=== PATIENT | male | born 1945 | race Caucasian/White ===

== ENCOUNTER 2019-03-06 09:56 | Inpatient (IN) ==
[2019-03-06] MEDS ORDERED: NS 1,000 ML IV ONE (10:48)
[2019-03-06] MEDS ORDERED: NS 1,000 ML ONE (10:55)
[2019-03-06 11:08] LABS: BASO# 0.01 X1000 (0.0-0.2); BASO% 0.1 % (0.0-0.8); EOS# 0.06 X1000 (0.0-0.7); EOS% 0.5 % (0.0-10.0); HEMATOCRIT 35.1 % (42.0-52.0); HEMOGLOBIN 11.9 g/dL (14.0-18.0); IMM GRAN# 0.04 X1000 (0.0-0.04); IMM GRAN% 0.3 % (0.0-0.5); LYMPH# 0.46 X1000 (1.2-3.4); LYMPH% 3.7 % (20.5-51.1); MCH 29.5 PG (27-31); MCHC 33.9 g/dL (33-37); MCV 86.9 FL (81-99); MONO# 1.38 X1000 (0.11-0.59); MONO% 11.1 % (1.7-9.3); MPV 11.2 FL (7.4-10.4); NEUT# 10.51 X1000 (1.4-6.5); NEUT% 84.3 % (42.2-75.2); PLT 161 X1000 (130-400); RBC 4.04 XMIL (4.7-6.1); RDW 13.8 % (11.5-14.5); WBC 12.46 X1000 (4.8-10.8)
--- NOTE | 2019-03-06 11:28 | Diag Imaging Result Doc PS360 ---
FLAT/UPRIGHT ABD/1 VIEW CHEST - 03/06/2019 INDICATION: post op abdominal swelling TECHNIQUE: COMPARISON: Chest x-ray 10/02/2017 FINDINGS: There is severe pulmonary fibrosis in the lung bases. There are new infiltrates in the lung bases. Heart size and pulmonary vascularity is normal. There are some large gas distended small bowel loops abnormally distended. These measure up to 3.9 cm. There is fecal impaction of the colon diffusely. No free air. IMPRESSION: 1. Significant fecal impaction of the colon. 2. Abnormally distended small bowel loops consistent with partial obstruction or ileus. 3. Severe pulmonary fibrosis. 4. Superimposed infiltrate/pneumonia in the lung bases. Electronically signed by Rolly Morton 03/06/2019 11:26 AM
[2019-03-06 11:38] LABS: ALB/GLOB RATIO 0.9; ALBUMIN 3.4 g/dL (3.5-5.0); CALCIUM 9.1 mg/dL (8.8-10.2); POTASSIUM 4.8 mmol/L (3.5-5.1); TOTAL BILIRUBIN 0.53 mg/dL (0.20-1.00); TOTAL PROTEIN 7.1 g/dL (6.3-8.3)
--- NOTE | 2019-03-06 14:01 | HISTORY AND PHYSICAL ---
HISTORY: Mr. Vasquez Rubalcava is a 73-year-old white male patient of Dr. Jonel Braden. He has a history of gastric cancer and gastric resection. He recently has developed bilateral inguinal hernias. of last week, he underwent a robotic assisted laparoscopic repair of his bilateral inguinal hernias using mesh. His trocars were placed in the upper abdomen, but under direct vision of the camera. We felt we negotiated any scarring from his previous gastric surgery. We felt that the hernia repairs went well. Postoperatively, he had some problems voiding but was discharged home and was able to void when he got home. However, he has had lower abdominal pain. He feels more than expected for hernia repair the first 3 days postop. That pain has improved, but he has abdominal distention. He has not been able to eat or drink a lot of volume. He did vomit today, and his thought it was a coffee-ground vomitus. It did make him feel better to vomit. He did have a small bowel movement over the last 24 hours and passed some gas. He has taken all his pain medicine. I gave him 12 [place] 7.5. He was brought to the emergency department because of his failure to thrive postoperative bilateral inguinal hernia repair. PHYSICAL EXAMINATION: On exam, Mr. Rubalcava is awake and cooperative. He is sitting up. He has obvious abdominal distention. He is unshaven. He looks a little bit dehydrated and weak. He has no jaundice. No oral lesions. No cervical or supraclavicular lymphadenopathy. His heart has a regular rate. I think he is a little bit tachycardic. He is not hooked to the monitor. He has no shortness of breath. His lungs were clear to auscultation and percussion bilaterally. His abdomen is distended. His trocar sites are intact with Steri-Strips. His inguinal hernia area has no evidence of recurrent hernia or incarcerated hernia. There is minimal swelling and bruising. LABORATORY DATA AND X-RAYS: Pending. IMPRESSION: Postoperative abdominal distention and pain, which we feel was out of the ordinary status post robotic assisted laparoscopic bilateral inguinal hernia repair. It could be a postoperative ileus pr problems with urinary retention. We did place trocars close to abdominal scarring in the upper abdomen, and we need to rule out any unrecognized injury from trocar placement. PLAN: Certainly, I will notify Dr. Jonel Braden of his admission. We will send labs including CBC and Chem 12. We will get a flat and upright abdominal film. I do feel that he will require admission. cc: Zulema Walton MD
[2019-03-06] MEDS: AZULFIDINE PO SCH (23:48)
[2019-03-07 06:28] LABS: BASO# 0.01 X1000 (0.0-0.2); BASO% 0.1 % (0.0-0.8); EOS# 0.08 X1000 (0.0-0.7); EOS% 0.8 % (0.0-10.0); HEMATOCRIT 34.7 % (42.0-52.0); HEMOGLOBIN 11.7 g/dL (14.0-18.0); LYMPH# 0.42 X1000 (1.2-3.4); LYMPH% 4.3 % (20.5-51.1); MCH 29.8 PG (27-31); MCHC 33.7 g/dL (33-37); MCV 88.5 FL (81-99); MONO# 1.13 X1000 (0.11-0.59); MONO% 11.6 % (1.7-9.3); NEUT# 8.13 X1000 (1.4-6.5); NEUT% 83.2 % (42.2-75.2); PLT 187 X1000 (130-400); RBC 3.92 XMIL (4.7-6.1); RDW 13.9 % (11.5-14.5); WBC 9.77 X1000 (4.8-10.8)
[2019-03-07 07:25] LABS: CALCIUM 8.8 mg/dL (8.8-10.2); CREATININE 1.3 mg/dL (0.7-1.2); POTASSIUM 3.9 mmol/L (3.5-5.1)
[2019-03-07] MEDS ORDERED: SPIRIVA INH SCH (07:30)
--- NOTE | 2019-03-07 07:34 | PROGRESS NOTE ---
DATE: 03/07/2019 Mr. Vasquez Rubalcava is now postop day 6 from a robotic assisted laparoscopic bilateral inguinal hernia repair. His postoperative convalescence has been complicated by nausea, increasing abdominal distention, and dehydration with elevation of his BUN and creatinine. He presented to the emergency department yesterday after vomiting and it was felt to be coffee-grounds by his . On exam, he had abdominal distention but no evidence of peritonitis. Flat and upright abdominal films did not suggest free air. His white blood cell count was 12.5. He was admitted for rehydration. This morning, his abdomen remains distended. He did not sleep because he could not get comfortable. It is not tender. His heart rate is 84, blood pressure 119/50, O2 saturation 97%. His T-max was 99.5 degrees and he is not on antibiotics. His white blood cell count is now normal at 9.8, hematocrit steady at 35%. His electrolytes are pending. I expect his BUN and creatinine to be improved with hydration. He has had satisfactory urine output of 400-600 mL per shift. He is not taking much p.o. fluids. I am going to send him for a CT scan of his abdomen and pelvis this morning for further evaluation intra-abdominally. On exam of his abdomen, it is distended tightly. It does not seem to be tender. His trocar sites are intact and he has no evidence of recurrent inguinal hernia. He states that he did pass some flatus this morning. Further recommendations will be made after the CT scan. cc: Zulema Walton MD
[2019-03-07] MEDS: PATIENT'S OWN MED INH SCH ×3 (07:49→19:54)
[2019-03-07] MEDS: SODIUM CHLORIDE 0.9% INJ SCH (08:14)
[2019-03-07] MEDS: PROTONIX IV SCH (08:14)
[2019-03-07] MEDS: D5 1/2 NS + KCL 20 MEQ 1,000 ML IV SCH (08:14)
[2019-03-07] MEDS: AZULFIDINE PO SCH (11:36)
--- NOTE | 2019-03-07 12:15 | Diag Imaging Result Doc PS360 ---
EXAM: CT ABD/PELVIS W/PO AND IV CON 03/07/2019 HISTORY: Abd distension after bilateral inguinal hernia rep TECHNIQUE: This exam was performed using automated exposure control, adjustment of mA or kV according to patient size, and/or use of iterative reconstruction technique. COMMENT: There is COPD with extensive subpleural blebs. There is also honeycombing in both lower lobes as well as volume loss and consolidation particularly in the right lower lobe. Compared to the previous thoracic CT of 10/02/2017, the consolidation in the right lower lobe was not present previously. There is some traction bronchiectasis particularly in the left lower lobe which was also present previously. There is some ascites. There are some small gallstones layering dependently in the gallbladder which is distended. There are surgical clips adjacent to the pancreatic head. The common bile duct is somewhat distended measuring over 9 mm in diameter. This measured under 8 mm previously. There is dilatation of the distal pancreatic duct and multiple cystic appearing abnormalities are present in the area of the pancreatic head and anterior right pararenal space. This may be sequela of pancreatitis. No previous abdominal CT examinations are available for comparison. There is no evidence of stones or hydronephrosis in the kidneys. There are atherosclerotic calcifications in the aorta which is not distended. There are multiple fluid-filled small bowel loops. There is some stool in the ascending colon but the majority of the colon is not distended. This is particularly true of the descending colon. There is no evidence of appendicitis. Pelvis: The distal small bowel is not distended. There are bilateral seromas in the internal inguinal rings. There is a knuckle of small bowel protruding into the right inguinal ring and this is apparently the location of the stricture producing the obstruction. There is a Prakash catheter in the bladder. IMPRESSION: 1. Small bowel obstruction due to right inguinal hernia or associated adhesion. 2. Worsened biliary dilatation and multilocular cystic pancreatic abnormality as described above. 3. Atelectasis and/or pneumonia right lower lobe superimposed on pulmonary fibrosis and COPD. Electronically signed by Monster Melgoza 03/07/2019 12:12 PM
[2019-03-07] MEDS ORDERED: ROBINUL ONE ×2 (13:26→13:31)
[2019-03-07] MEDS ORDERED: XYLOCAINE-MPF 2% ONE (13:26)
[2019-03-07] MEDS ORDERED: FENTANYL ONE (13:26)
[2019-03-07] MEDS ORDERED: DIPRIVAN 1% ONE (13:26)
[2019-03-07] MEDS ORDERED: HURRICAINE SPRAY (DOSE) ONE (13:27)
[2019-03-07] MEDS ORDERED: NORCURON ONE (13:29)
[2019-03-07] MEDS ORDERED: QUELICIN (DOSE) ONE (13:29)
[2019-03-07] MEDS ORDERED: STERILE WATER INJ. ONE (13:29)
[2019-03-07] MEDS ORDERED: SODIUM CHLORIDE 0.9% 10 ML ONE (13:49)
[2019-03-07] MEDS ORDERED: KEFZOL 1 GM/D5W 1 GM/50 ML IVPB ONE (13:52)
--- NOTE | 2019-03-07 14:01 | PROGRESS NOTE ---
DATE: 03/07/2019 I have reviewed the CT scan of Mr. Rubalcava with Dr. Monster Melgoza, our radiologist. It appears that he has a distal small bowel obstruction, and the obstruction is right at the at the repair of his right inguinal hernia. It is clear that there was a transition zone in this area, and I think we need to take him to surgery for exploratory laparotomy and relieve his small bowel obstruction. I have discussed this in detail with him at the bedside. Dr. Eric Braden was present, as was his [id number]. His is with their daughter, who is having a at this point. I think we are going to have to make an incision because he is tightly distended, and I discussed that with him. Hopefully it will not affect his hernia repair. cc: Zulema Walton MD
[2019-03-07] MEDS ORDERED: LUBRIFRESH PM OPH OINTMENT ONE (14:07)
[2019-03-07] MEDS ORDERED: NEOSTIGMINE ONE (14:26)
[2019-03-07] MEDS ORDERED: ZOFRAN ONE (14:29)
[2019-03-07] MEDS ORDERED: DECADRON ONE (14:29)
[2019-03-07] MEDS ORDERED: MORPHINE ONE (16:28)
[2019-03-07] MEDS ORDERED: OFIRMEV 1000 MG/ISOTONIC SOLN 1,000 MG/100 ML BOTTLE ONE (16:41)
[2019-03-07] MEDS: DUONEB (A & A) INH SCH ×2 (17:28→20:09)
[2019-03-07] MEDS: OFIRMEV 1000 MG/ISOTONIC SOLN 1,000 MG/100 ML BOTTLE IV SCH ×2 (18:00→23:03)
[2019-03-07] MEDS ORDERED: CHLORASEPTIC SPRAY MT PRN (18:10)
[2019-03-07] MEDS: MORPHINE IV PRN ×2 (18:19→19:57)
[2019-03-07] MEDS: ZOSYN 3.375 GM in NS 50 ML IV SCH (18:19)
--- NOTE | 2019-03-07 18:44 | OPERATIVE NOTE ---
PROCEDURE DATE: 03/07/2019 PREOPERATIVE DIAGNOSIS: Small bowel obstruction. POSTOPERATIVE DIAGNOSIS: Small bowel obstruction. PRINCIPAL PROCEDURE: Exploratory laparotomy with repair of internal abdominal hernia. SURGEON: Zulema Walton MD. ANESTHESIA: General. ESTIMATED BLOOD LOSS: 50 mL. DRAINS: None. INDICATIONS: Mr. Vasquez Rubalcava is a 73-year-old white male on whom, 6 days ago, I performed a robotic assisted laparoscopic GREGORY bilateral inguinal hernia repair. He presented to the emergency department, on 03/06/2019, after several days of increasing abdominal pain, distention, nausea, and the day he presented, he had some vomiting. Flat and upright abdominal films showed no free air, but dilated loops of small bowel. He was hydrated overnight and then we got a CT scan of his abdomen and pelvis, which suggested a distal small bowel obstruction related to an internal hernia at the right inguinal hernia repair site. Surgery was recommended. FINDINGS: He had a knuckle of distal jejunum in a defect that involved the peritoneum, and this loop of bowel was through this defect in the peritoneum and was caught between the peritoneum and our piece of mesh that we used to repair his right inguinal hernias. This was not a recurrent hernia, but this was a loop of bowel caught between the space of the peritoneum that was sewn back to cover the mesh and the mesh itself. We reduced this internal hernia and we closed the defect in the peritoneum with a running 3-0 Vicryl stitch, hoping that it will stay intact. He had no omentum that I could use in this area because he has had previous gastric surgery for cancer. We did take time to milk back air and fluid into what was left of the stomach, and it was removed with an NG tube. There was no evidence of infection intra-abdominally, and we hope that there are no problems with infection involving the mesh. PROCEDURE: The patient was brought to the operating room, placed supine, received general anesthesia, and was intubated. His abdomen was prepped and draped in a sterile field. He already had a Prakash catheter tube and I have asked Anesthesia to place an NG tube. We used an Ioban on the skin and he received Ancef prophylactically. I made a midline incision, beginning at my trocar site in the mid upper abdomen, around the umbilicus, down through the pubis. The cautery was used to transect the soft tissue an we carefully entered the abdomen, and he had dilated loops of small bowel. I carefully retracted the right anterior abdominal wall and got down to where I could see exactly where this internal hernia was and how it became established. He had a defect in the peritoneum that we used to cover the mesh, and there was a piece of distal jejunum that got through this defect in the peritoneum and was caught between the peritoneum itself and our mesh that we used to repair the hernias. It was caught within that preperitoneal space. I was able to reduce it and I primarily closed the peritoneal defect with a Vicryl stitch. Then we took the time to milk back all the fluid in the distended small bowel into his remaining stomach where there was an NG tube, and we removed this fluid using the NG tube, and a total of 3000 mL of fluid was removed. We left the NG tube in place. I placed the bowel back in its anatomically correct position. There was no omentum to cover the bowel. I did close the peritoneum with a running 0 Vicryl stitch, and then I closed the fascia with a running #1 Maxon stitch. I irrigated the wound. The skin was closed with a skin clip developer prover mechanical. A dry dressing was applied. Plans are to leave his NG tube and Prakash catheter tube in. He will go to the recovery room and then return to his room on the floor. I spoke with his [id number] at the end of the procedure. cc: MD Deb Rivas MD
[2019-03-07] MEDS: KEFZOL 1 GM/D5W 1 GM/50 ML IVPB IV SCH (21:20)
[2019-03-08] MEDS: D5 1/2 NS + KCL 20 MEQ 1,000 ML IV SCH ×2 (01:33→14:39)
[2019-03-08] MEDS: KEFZOL 1 GM/D5W 1 GM/50 ML IVPB IV SCH ×4 (01:34→20:56)
[2019-03-08] MEDS: DUONEB (A & A) INH SCH ×4 (03:29→21:07)
[2019-03-08] MEDS: MORPHINE IV PRN ×4 (03:54→17:21)
[2019-03-08] MEDS: OFIRMEV 1000 MG/ISOTONIC SOLN 1,000 MG/100 ML BOTTLE IV SCH ×3 (04:00→17:21)
[2019-03-08] MEDS: ZOSYN 3.375 GM in NS 50 ML IV SCH ×4 (04:04→21:04)
[2019-03-08] MEDS: LOVENOX SUBQ SCH ×2 (04:34→06:05)
[2019-03-08 06:38] LABS: HEMATOCRIT 34.7 % (42.0-52.0); HEMOGLOBIN 11.6 g/dL (14.0-18.0); MCH 29.9 PG (27-31); MCHC 33.4 g/dL (33-37); MCV 89.4 FL (81-99); MPV 10.9 FL (7.4-10.4); RBC 3.88 XMIL (4.7-6.1); RDW 13.9 % (11.5-14.5); WBC 10.86 X1000 (4.8-10.8)
[2019-03-08 07:13] LABS: CALCIUM 8.2 mg/dL (8.8-10.2); CREATININE 1.3 mg/dL (0.7-1.2); POTASSIUM 4.4 mmol/L (3.5-5.1)
[2019-03-08] MEDS: PATIENT'S OWN MED INH SCH ×3 (08:49→21:10)
--- NOTE | 2019-03-08 08:56 | Diag Imaging Result Doc PS360 ---
CHEST-PORTABLE - 03/08/2019 INDICATION: aspiration pneumonia COMPARISON: 03/06/2019 FINDINGS: There is a stable nasogastric tube in good position in the stomach. There has been slight decrease in the ill-defined bibasilar infiltrates. No new infiltrates. No pneumothorax or pleural effusion. Heart size is top normal. IMPRESSION: Improvement in the ill-defined bibasilar infiltrates, probably all pulmonary fibrosis at this point. Electronically signed by Rolly Morton 03/08/2019 8:54 AM
--- NOTE | 2019-03-08 08:59 | PROGRESS NOTE ---
DATE: 03/08/2019 SUBJECTIVE: Mr. Rubalcava was admitted to [facility] with a small bowel obstruction. He is postoperative day #1 for an exploratory laparotomy with repair of internal abdominal hernia. He reported that he slept much better last night. He has had minimal output through the NG tube. He has not had a bowel movement or passed flatus. At the time of admission, he was also noted to be in acute renal failure. His creatinine was 2. We have been rehydrating him, and his renal function has improved to 1.3. He is with complaint of a cough productive of yellowish brown sputum and pleuritic chest pain. Chest x-ray showed pulmonary fibrosis with a possible infiltrate in the right lower lobe. I suspected that he had aspirated and started him on Zosyn and nebulizer treatments. He is breathing comfortably and maintaining O2 saturations of 97% on supplemental O2. OBJECTIVE: Temperature 97.9 degrees, pulse 85, respirations 18, and BP 131/45.CV: Regular rate and rhythm. Lungs: Crackles in the right base. Abdomen: Mildly distended. Hypoactive bowel sounds. No rebound or guarding. ASSESSMENT AND PLAN: 1. Small bowel obstruction. Postoperative day #1 following exploratory laparotomy with a repair of an internal abdominal hernia. Hopefully, we will be able to stop the NG tube today as he has had minimal output via the NG tube. We will continue ice chips. We will treat nausea on a p.r.n. basis with Zofran. As he begins to have more bowel sounds and passes flatus, we will begin clear liquids and advance his diet as tolerated. 2. Aspiration pneumonitis. We will continue DuoNeb nebulizer treatments, as well as IV Zosyn. 3. Acute renal failure. I suspect that his renal failure was due to volume depletion due to gastrointestinal losses. His renal function has improved significantly. Creatinine has dropped from 2.0 to 1.3. I will begin to back down on the fluids today. cc: MD Zulema Del Rio MD
[2019-03-08] MEDS: SODIUM CHLORIDE 0.9% INJ SCH (10:24)
[2019-03-08] MEDS: PROTONIX IV SCH (10:24)
--- NOTE | 2019-03-08 12:45 | CONSULTATION ---
DATE OF CONSULTATION: 03/08/2019 REFERRING PHYSICIAN: Dr. Derrick Walton. HISTORY OF PRESENT ILLNESS: Mr. Vasquez Rubalcava is a 73-year-old gentleman who is well known to me. He has a history of multiple medical problems, including COPD, rheumatoid arthritis, and adenocarcinoma of the stomach, who recently underwent repair of bilateral inguinal hernias. He presented to the ER with complaint of increasing abdominal bloating, distention, intractable nausea and vomiting. He did have a large diarrheal-type stool earlier this morning. The flat and upright abdominal films demonstrated no evidence of free air. A followup CT scan of the abdomen and pelvis was consistent with a small bowel obstruction. At the time of admission, he was noted to be in acute renal failure. His creatinine was 2.0. Dr. Walton started him on fluids, and his creatinine had dropped to 1.4. As stated earlier, he does have a history of COPD. He is with complaint of cough, pleuritic chest pain, and mild shortness of breath. X-rays of the lungs demonstrated fibrotic changes with a possible infiltrate in the right lower lobe. PAST MEDICAL HISTORY: As above. PAST SURGICAL HISTORY: Bilateral inguinal hernia repair. ALLERGIES: No known drug allergies. FAMILY HISTORY: Noncontributory. SOCIAL HISTORY: He is a former smoker. He does not consume alcoholic beverages. He is , and lives at home with his spouse. MEDICATIONS: Spiriva hand inhaler 1 inhalation daily, Serevent Diskus 1 puff b.i.d. REVIEW OF SYSTEMS: Constitutional: He denies any recent weight gain or weight loss. HEENT: He wears glasses. CV: No chest pain, palpitations, or anginal equivalents. Pulmonary: See HPI. GI: See HPI. Endocrine: No polyuria, no polydipsia. Skin: No easy bruisability. : No leakage of urine with coughing or laughing. Neurologic: No migraines or seizures. Psychiatric: No history of depression. PHYSICAL EXAMINATION: General: This is an acutely ill-appearing, 73-year-old, gentleman in no apparent distress. Vital Signs: He is afebrile. Vital signs are stable. HEENT: Fundi with sharp discs and vessels. Pupils equal, round, reactive to light. Extraocular eye movements intact. TMs without bullae. No gross exudates in the oropharynx. Neck: Supple. No masses, JVD, or bruits. CV: Regular rate and rhythm. Lungs: Crackles in the right base. Abdomen: Distended with high-pitched bowel sounds. Extremities: Without edema. Neurologic: Nonfocal. ASSESSMENT AND PLAN: 1. Small bowel obstruction. He has progressive nausea, vomiting, and abdominal distention. Certainly, he is at risk for developing gangrene of the gut. I agree with Dr. Walton that this is a surgical abdomen. 2. Aspiration pneumonitis. I will begin DuoNeb nebulizer treatments and intravenous Zosyn. 3. Acute renal failure. We will continue gentle hydration, and follow his renal function. cc: MD Zulema Del Rio MD
--- NOTE | 2019-03-08 18:08 | PROGRESS NOTE ---
DATE: 03/08/2019 SUBJECTIVE: Mr. Vasquez Rubalcava is a 73-year-old white male who is now postop day 1 from exploratory laparotomy for a small bowel obstruction six days after undergoing a robotic-assisted laparoscopic bilateral inguinal hernia repair. He had a defect in his peritoneum and his bowel became obstructed between the peritoneum defect and the mesh. We were able to reduce this and I repaired the defect in the peritoneum. We milked 3 L of fluid out of his small bowel and we left an NG tube after surgery. He also has a Prakash catheter tube. He went to the recovery room and now he is back on [address] [place]. He is awake and cooperative. His abdomen is less distended. He has an NG tube in place with satisfactory output. He still has a Prakash catheter tube in place. He is receiving IV Ancef prophylactically because I had to reoperate on him with mesh in his abdomen. He continues to receive IV fluids and is NPO. OBJECTIVE: Vital signs: His heart rate is 88, blood pressure 111/63, O2 saturation 97%. He is afebrile. IMAGING: Chest x-ray was performed today and his atelectasis has improved. PLAN: We left his NG tube in today. We will consider on a daily basis about removing his NG tube. We needs to remain NPO except for ice chips while his NG tube is in place. He had some trouble voiding after surgery. We need to remove his Prakash catheter tube. His prostate is slightly enlarged. We will look to remove that in the morning. We need to increase his activity. cc: Zulema Walton MD
[2019-03-08] MEDS ORDERED: SEREVENT DISKUS INH SCH (19:30)
[2019-03-09] MEDS: OFIRMEV 1000 MG/ISOTONIC SOLN 1,000 MG/100 ML BOTTLE IV SCH ×5 (00:12→22:45)
[2019-03-09] MEDS: D5 1/2 NS + KCL 20 MEQ 1,000 ML IV SCH (00:35)
[2019-03-09] MEDS: KEFZOL 1 GM/D5W 1 GM/50 ML IVPB IV SCH ×3 (01:58→14:12)
[2019-03-09] MEDS: MORPHINE IV PRN ×3 (02:03→09:04)
[2019-03-09] MEDS: DUONEB (A & A) INH SCH ×4 (03:23→20:32)
[2019-03-09] MEDS: ZOSYN 3.375 GM in NS 50 ML IV SCH ×4 (03:43→22:44)
[2019-03-09] MEDS: LOVENOX SUBQ SCH (05:22)
[2019-03-09] MEDS: PATIENT'S OWN MED INH SCH ×2 (08:00→20:32)
[2019-03-09] MEDS: SPIRIVA INH SCH (08:00)
--- NOTE | 2019-03-09 08:58 | PROGRESS NOTE ---
DATE: 03/09/2019 SUBJECTIVE: Mr. Rubalcava is postoperative day #2 following exploratory laparotomy for small bowel obstruction. He is passing small amounts of flatus. He has not had a bowel movement. He denies any further nausea or vomiting. He had 750 mL of output via the NG tube. He is breathing comfortably. His cough has improved. He does not have any productive cough. His chest x-ray yesterday showed improvement in the ill- defined bibasilar infiltrates. OBJECTIVE: Vital Signs: Temperature 98.5 degrees, pulse 90, respirations 16, BP 112/58. CV: Regular rate and rhythm. Lungs: Faint crackles in the right base. Abdomen: Soft, nontender, with active bowel sounds. Extremities: Without edema. ASSESSMENT AND PLAN: 1. Aspiration pneumonitis. We will continue DuoNeb nebulizer treatments and intravenous Zosyn. I will recheck a posterior/anterior and lateral chest x-ray in the morning. 2. Small bowel obstruction, postoperative day #2 following exploratory laparotomy. He still had 750 mL of nasogastric tube output. He is passing flatus. He is not having any nausea. Hopefully, we will be able to stop the nasogastric tube soon. We will continue ice chips. cc: MD Zulema Del Rio MD
[2019-03-09] MEDS: SODIUM CHLORIDE 0.9% INJ SCH (09:39)
[2019-03-09] MEDS: PROTONIX IV SCH (09:39)
[2019-03-09] MEDS ORDERED: BLISTEX MEDICATED BERRY LIP BALM TOP PRN (11:19)
--- NOTE | 2019-03-09 14:34 | PROGRESS NOTE ---
DATE: 03/09/2019 SUBJECTIVE: Mr. Vasquez Rubalcava is postop day #2 from exploratory laparotomy for small bowel obstruction status post robotic-assisted laparoscopic bilateral inguinal hernia repair. He continued to have an NG tube. I did remove that today. We also removed his Prakash catheter tube. He has voided since that catheter has been removed. He has been on IV antibiotics just prophylactically because he required surgery with intra-abdominal mesh. EXAMINATION: His abdomen is still distended, but not tightly so. He has had no bowel activity. PLAN: We will not feed him. We will keep him just taking ice chips. He will need some maintenance IV fluid so he does not get dehydrated. We will work on his pain control. He has been good about getting up out of bed. I discussed his care with him and his at the bedside. Dr. Guero Fraser is covering this weekend. cc: Zulema Walton MD
[2019-03-10] MEDS: ZOSYN 3.375 GM in NS 50 ML IV SCH ×4 (03:44→20:56)
[2019-03-10] MEDS: OFIRMEV 1000 MG/ISOTONIC SOLN 1,000 MG/100 ML BOTTLE IV SCH ×5 (03:44→21:59)
[2019-03-10] MEDS: DUONEB (A & A) INH SCH ×4 (04:03→20:10)
[2019-03-10] MEDS: LOVENOX SUBQ SCH (05:30)
[2019-03-10] MEDS: D5 1/2 NS + KCL 20 MEQ 1,000 ML IV SCH ×2 (05:33→16:54)
--- NOTE | 2019-03-10 06:31 | GENERAL SURGERY PROGRESS NOTE ---
DATE: 03/10/2019 SUBJECTIVE: Patient says he is doing okay. He has passed a little bit of gas He denies nausea. OBJECTIVE: Vital Signs: Patient is currently afebrile. He does have a low- grade tachycardia in the 110's. Blood pressure is fine. General: No acute distress. Cardiovascular: Some mild tachycardia. Lungs: Grossly clear. Abdomen: Soft, appropriately tender, incision with dressing in place. ASSESSMENT AND PLAN: A 73-year-old gentleman status post exploratory laparotomy, repair of internal abdominal wall hernia. #1 postop state at this time, he seems to be making some improvement. We will put him on a clear liquid diet. He is having some return of bowel function. He is up and ambulating and moving. He is on Lovenox. He seems to be doing well. His primary care physician is also following him. We will defer his low-grade tachycardia to his primary care physician. cc: MD Zulema Pereyra MD MTDD
[2019-03-10 07:46] LABS: BASO# 0.04 X1000 (0.0-0.2); BASO% 0.2 % (0.0-0.8); EOS# 0.17 X1000 (0.0-0.7); EOS% 0.8 % (0.0-10.0); HEMATOCRIT 34.4 % (42.0-52.0); HEMOGLOBIN 11.8 g/dL (14.0-18.0); IMM GRAN# 0.17 X1000 (0.0-0.04); IMM GRAN% 0.8 % (0.0-0.5); LYMPH# 0.57 X1000 (1.2-3.4); LYMPH% 2.8 % (20.5-51.1); MCH 29.9 PG (27-31); MCHC 34.3 g/dL (33-37); MCV 87.3 FL (81-99); MONO# 0.61 X1000 (0.11-0.59); MPV 11.5 FL (7.4-10.4); NEUT# 19.06 X1000 (1.4-6.5); NEUT% 92.4 % (42.2-75.2); PLT 219 X1000 (130-400); RBC 3.94 XMIL (4.7-6.1); RDW 14.5 % (11.5-14.5); WBC 20.62 X1000 (4.8-10.8)
[2019-03-10 08:08] LABS: CALCIUM 8.2 mg/dL (8.8-10.2); CREATININE 1.2 mg/dL (0.7-1.2); POTASSIUM 4.7 mmol/L (3.5-5.1)
[2019-03-10] MEDS: SPIRIVA INH SCH (08:14)
[2019-03-10] MEDS: PATIENT'S OWN MED INH SCH (08:15)
[2019-03-10] MEDS: SODIUM CHLORIDE 0.9% INJ SCH (08:56)
[2019-03-10] MEDS: PROTONIX IV SCH (08:56)
[2019-03-10] MEDS: PERIDEX MT SCH ×2 (08:56→20:59)
[2019-03-10 10:21] LABS: INR 1.08; PROTIME 14.9 Seconds (11.0-16.0)
[2019-03-10 10:22] LABS: PTT 40.3 Seconds (22.3-41.8)
--- NOTE | 2019-03-10 10:52 | PROGRESS NOTE ---
DATE: 03/10/2019 SUBJECTIVE: Mr. Rubalcava is postoperative day #3 following exploratory laparotomy for repair of a small bowel obstruction. His abdomen is soft, but mildly distended. He is passing flatus. The NG tube has been discontinued. Dr. Fraser started him on clear liquids. He is breathing comfortably. He continues with a minimal cough and mild pleuritic chest pain. He did have evidence of an aspiration pneumonia. OBJECTIVE: Vital Signs: Temperature 97.8 degrees, pulse 95 respiratory rate 18, BP 117/73. CV: Regular rate and rhythm. Lungs: Faint crackles in the right base. Abdomen: Soft, but mildly distended. Hypoactive bowel sounds. LABS: A CBC demonstrated white count of 20,000, hemoglobin 11, hematocrit 34 and a platelet count of 219,000. Electrolytes demonstrated the following: Sodium 133, potassium 4.7, BUN 30, creatinine 1.2 and glucose 111. ASSESSMENT AND PLAN: 1. Small bowel obstruction postoperative day #3 following exploratory laparotomy. Clinically, he continues to improve slowly. He is not having nausea and vomiting since the nasogastric tube has been removed. He is passing small amounts of flatus. We will begin a clear liquid diet. 2. Aspiration pneumonia. We will continue Zosyn. Check a room air oxygen saturation, and stop the oxygen if his oxygen level is greater than 90, and recheck a portable chest x-ray today. cc: MD Zulema Del Rio MD
--- NOTE | 2019-03-10 12:21 | Diag Imaging Result Doc PS360 ---
EXAM: CHEST-PORTABLE HISTORY: aspiration pneumonia TECHNIQUE: Chest single view COMPARISON: 03/08/2019 FINDINGS: The nasogastric tube has been removed. There are increased interstitial markings in the lung bases similar to the prior study. No cardiomegaly. No consolidation. No pleural effusions identified. IMPRESSION: Removal of the nasogastric tube, but otherwise stable exam. Electronically signed by Maulik Rader 03/10/2019 12:19 PM
--- NOTE | 2019-03-10 14:07 | Diag Imaging Result Doc PS360 ---
EXAM: CT ABDOMEN/PELVIS W/O CONTRAST HISTORY: S/P exp lap TECHNIQUE: CT abdomen and pelvis without contrast COMPARISON: 03/07/2019 FINDINGS: Lung bases are unchanged. No focal hepatic normality identified on this noncontrasted exam. Spleen is not enlarged. There is a small amount of fluid about the spleen. Normal pancreas, adrenal glands, and kidneys except for a hyper dense nodule or cyst within the right kidney. No hydronephrosis. Severe atherosclerosis. No aortic aneurysm. There are multiple midline skin pablito. There is a moderate amount of free fluid within the pelvis. There is free air anteriorly within the abdomen consistent with recent surgery. There is a moderate amount of free fluid in the upper mid abdomen and in the pelvis. No well-defined abscess. There is air throughout the colon. The colon is not distended. Only the small bowel in the mid right abdomen is distended on the current exam. The urinary bladder is distended and is normal. There is fluid in the inguinal hernias. No dilated loops of bowel adjacent to or within either inguinal hernia. IMPRESSION: 1.Recent abdominal surgery with free air and fluid within the abdomen and pelvis likely related to the recent surgery. No abscess. 2.Dilated small bowel in the right upper and mid abdomen although the remaining bowel loops are less distended than they were on the prior study 3.No evidence of recurrent obstruction within the right inguinal canal 4. The results were discussed with Dr. Walton and Dr. Fraser at 2:05 PM This exam was performed using automated exposure control, adjustment of mA or kV according to patient size, and/or use of iterative reconstruction technique. Electronically signed by Maulik Rader 03/10/2019 2:04 PM
--- NOTE | 2019-03-10 15:26 | Diag Imaging Result Doc PS360 ---
EXAM: CHEST-PORTABLE HISTORY: cvl and NG TECHNIQUE: Chest single view COMPARISON: 11:26 AM FINDINGS: Interval placement of a right jugular line. The tip lies near the junction of superior vena cava and right atrium. No pneumothorax. A nasogastric tube has been placed which overlies the esophagus and stomach. No other interval change. IMPRESSION: Right jugular line and nasogastric tubes in good position. Electronically signed by Maulik Rader 03/10/2019 3:24 PM
--- NOTE | 2019-03-10 15:31 | Diag Imaging Result Doc PS360 ---
EXAM: ABDOMEN FLAT/UPRIGHT HISTORY: s/p exp lap TECHNIQUE: Flat and upright, two views COMPARISON: 03/06/2019 FINDINGS: There is a nasogastric tube overlying the esophagus and stomach. There are multiple midline skin pablito. The bowel loops are not dilated. No organomegaly. Prominent atherosclerosis. IMPRESSION: No acute abnormality identified. Electronically signed by Maulik Rader 03/10/2019 3:29 PM
[2019-03-10] MEDS ORDERED: D10W 1,000 ML IV SCH (16:00)
--- NOTE | 2019-03-10 17:25 | PROGRESS NOTE ---
DATE: 03/10/2019 I was notified by Dr. Fraser this afternoon that Mr. Rubalcava was not feeling well. His white blood cell count was elevated and he had Re ordered a CT scan. His was also quite nervous about his condition. He vomited while he was down in CT scan. I came in and spoke with the patient and his and I felt we should proceed with a central venous line so that we can start total parenteral nutrition and replace his NG tube for ongoing ileus. I reviewed the CT scan with Dr. Fraser and Maulik Rader by phone. I feel that he has ongoing ileus. There was no evidence of recurrent obstruction at the right inguinal hernia in the right groin, which I repaired 4 days ago. He does have dilated loops of small bowel. He does have some air in his colon. On exam, his abdomen is distended, but not tightly and there was no evidence of acute abdomen. He is awake and cooperative. His heart rate is 100. Blood pressure 125/62, O2 saturation 95%. He has no work of breathing. He is afebrile. He has been on IV Zosyn since surgery prophylactically because he has mesh intra-abdominally. His white blood cell count did jump from 10 to 20, but that may be because he felt like vomiting during the night. His hematocrit is stable at 34%. His BUN and creatinine are 30 and 1.2. Bicarb is 24, his plasma lactate was 0.3. PLAN: Central venous line. Start TPN, NG tube. Make him again n.p.o. except for ice chips. I discussed this with his . cc: Zulema Walton MD
--- NOTE | 2019-03-10 17:29 | GENERAL SURGERY PROGRESS NOTE ---
DATE: 03/10/2019 Family somewhat concerned about the patient's overall status. Came to review the patient. His tachycardia seemed to improve. He is not complaining of any nausea or real abdominal pain but it is a burning sensation. He is on Protonix. His abdomen is only mildly distended, not particularly tender to exam, but given the concern, we will get a CT scan of his abdomen. Given his elevated heart rate and leukocytosis, he did get initiated on a sepsis protocol. Awaiting full report of those labs. At this time, continue supportive care. Continue antibiotics and continue PPIs and get a CT scan. Family was updated. May need to consider replacing NGT. cc: MD Zulema Pereyra MD MTDD
[2019-03-10 17:55] LABS: URINE SOURCE CLEAN CATCH
[2019-03-10 17:59] LABS: BILIRUBIN URINE NEGATIVE (NEGATIVE); BLOOD URINE TRACE (NEGATIVE); COLOR YELLOW; GLUCOSE URINE NEGATIVE (NEGATIVE); KETONE URINE 20 mg/dL (NEGATIVE); LEUKOCYTES URINE NEGATIVE (NEGATIVE); NITRITE URINE NEGATIVE (NEGATIVE); PROTEIN URINE 100 mg/dL (NEGATIVE); SP GRAVITY URINE 1.044; TURBIDITY URINE HAZY (CLEAR); UROBILINOGEN URINE NORMAL (NORMAL)
[2019-03-10] MEDS: [UNRECOGNIZED DRUG - NUTRITION] IV SCH ×7 (18:08)
[2019-03-10 18:11] LABS: UR EPITHELIAL CELLS <10 /HPF (<10); URINE BACTERIA NEGATIVE /HPF; URINE WBC <10 /HPF (<10)
[2019-03-10 18:14] LABS: URINE CASTS NONE SEEN; URINE YEAST NONE SEEN
[2019-03-10 18:15] LABS: URINE CRYSTALS URIC ACID PRESENT
[2019-03-10] MEDS: LIPOSYN 20% 500 ML IV SCH (18:15)
--- NOTE | 2019-03-10 18:19 | OPERATIVE NOTE ---
PROCEDURE DATE: 03/10/2019 PREOPERATIVE DIAGNOSIS: Prolonged ileus status post bilateral inguinal hernia repair, need for parental nutrition. POSTOPERATIVE DIAGNOSIS: Prolonged ileus status post bilateral inguinal hernia repair, need for parental nutrition. PRINCIPAL PROCEDURE: 1. Ultrasound-guided right internal jugular central venous line. 2. Placement of nasogastric tube. SURGEON: Zulema Walton MD. ANESTHESIA: Local. ESTIMATED BLOOD LOSS: Less than 10 mL. INDICATIONS: Mr. Vasquez Rubalcava is a 73-year-old white male who 9 days ago underwent a robotic assisted laparoscopic GREGORY repair of bilateral inguinal hernias using mesh. His postoperative convalescence was complicated by a bowel obstruction where a loop of his distal ilium got stuck in a tear of the peritoneum and the mesh itself. He required exploratory laparotomy on Tuesday or 4 days ago to relieve this obstruction. Yesterday I removed his NG tube but this morning he was nauseated again and vomited. My partner Guero Fraser ordered a CT scan and it suggested ongoing ileus. We felt we should place a central venous access for IV medications and total parenteral nutrition. We also replaced his NG tube. DESCRIPTION OF PROCEDURE: The patient was brought to the recovery room. Where Osmel, our ICU nurse, helped us. We placed a central venous line first. He was laid flat in his bed. His right neck, shoulder and anterior chest were prepped and draped in a sterile field. I used local anesthetic. I used the ultrasound and identified the right internal jugular vein between the 2 heads of the right sternocleidomastoid muscle and on the first stick using an 18-gauge needle I accessed this right internal jugular vein. Through the needle I placed a guidewire into the right side of the heart. The guidewire was removed. I made a small vivian in the skin. I did not use a dilator and just placed the antibiotic coated triple-lumen catheter over the guidewire into the superior vena cava. All 3 ports were functioning and were flushed with saline. I secured the catheter to his skin of the neck with two 3-0 silk stitches. Dressings were applied. I then directed my attention to NG tube. I used his left naris and placed an 18-Andorran NG tube into his stomach and we immediately removed 500-600 mL of bilious fluid. The NG tube was secured to his nose with tape. We then got a chest x-ray which documented good placement of his central venous line and his NG tube. We then took him back to his room [facility] where we will keep his NG tube to suction and we will begin TPN. I spoke with his . cc: Zulema Walton MD
[2019-03-10] MEDS: HUMULIN R SUBQ SCH (21:00)
[2019-03-11] MEDS: ZOSYN 3.375 GM in NS 50 ML IV SCH ×3 (03:31→19:48)
[2019-03-11] MEDS: DUONEB (A & A) INH SCH ×4 (03:50→20:10)
[2019-03-11] MEDS: OFIRMEV 1000 MG/ISOTONIC SOLN 1,000 MG/100 ML BOTTLE IV SCH ×3 (04:02→19:48)
[2019-03-11] MEDS: D5 1/2 NS + KCL 20 MEQ 1,000 ML IV SCH (04:40)
[2019-03-11] MEDS: LOVENOX SUBQ SCH (05:49)
[2019-03-11 06:48] LABS: HEMATOCRIT 31.1 % (42.0-52.0); HEMOGLOBIN 10.5 g/dL (14.0-18.0); MCHC 33.8 g/dL (33-37); MCV 88.9 FL (81-99); MPV 10.8 FL (7.4-10.4); RBC 3.5 XMIL (4.7-6.1); RDW 14.3 % (11.5-14.5); WBC 10.21 X1000 (4.8-10.8)
--- NOTE | 2019-03-11 07:11 | GENERAL SURGERY PROGRESS NOTE ---
DATE: 03/11/2019 SUBJECTIVE: The patient seems to be doing better. He had an eventful day yesterday, had an NG tube placed, central line placed secondary to nausea. The CT scan showed what looked more like an ileus. I did discuss with Dr. Walton. He did come in and place a central line and placed NG tube. Patient says he has had a bowel movement this morning. OBJECTIVE: Vital Signs: Patient is currently afebrile. His vital signs are stable. General: No acute distress, resting. Cardiovascular: Regular rate and rhythm. Lungs: Grossly clear. Abdomen: Soft, less distended, nontender. ASSESSMENT/PLAN: A 73-year-old gentleman with bowel obstruction status post exploratory laparotomy. Postoperative state at this time. He does report having return of bowel function but given his history yesterday, we will keep the tube in place. He is on TPN, so will keep that going. We will not make any moves until Dr. Walton probably comes back on Tuesday. We will give him time to have full definitive return of bowel function. Otherwise, continue current treatment. cc: MD Zulema Pereyra MD
[2019-03-11 07:20] LABS: AGAP 14; BUN 29 mg/dL (8-22); CALCIUM 8.2 mg/dL (8.8-10.2); CHLORIDE 99 mmol/L (98-107); COSMO 279; CREATININE 1.1 mg/dL (0.7-1.2); ESTIMATED GFR > 60; GLUCOSE 161 mg/dL (70-104); SODIUM 135 mmol/L (136-145); TCO2 22 mmol/L (25-35)
[2019-03-11] MEDS: SPIRIVA INH SCH (08:23)
[2019-03-11] MEDS: PATIENT'S OWN MED INH SCH ×2 (08:23→20:42)
--- NOTE | 2019-03-11 09:20 | PROGRESS NOTE ---
DATE: 03/11/2019 SUBJECTIVE: Mr. Rubalcava his postoperative day #4 following an exploratory laparotomy for small- bowel obstruction. He attempted to begin clear liquids yesterday, but had worsening nausea, vomiting, and abdominal distention. Dr. Walton replaced the NG tube, and started TPN. He is passing flatus. He has had two diarrheal-type stools. He is breathing comfortably. He has a minimal cough. A chest x-ray demonstrated pulmonary fibrosis. OBJECTIVE: Vital Signs: He is afebrile, pulse 98, respirations 20, BP 139/59. CV: Regular rate and rhythm. Lungs: Faint crackles in the right base. Abdomen: Soft, but mildly distended. Hypoactive bowel sounds. Extremities: Without edema. LABORATORY DATA: A CBC demonstrated a white count of 10.2, hemoglobin 10.5, hematocrit 31, platelet count 251,000. Electrolytes demonstrated the following: Sodium 135, potassium 4.0, chloride 99, CO2 of 22, BUN 29, creatinine 1.1, and glucose 161. ASSESSMENT AND PLAN: 1. Aspiration pneumonia. We will continue supplemental oxygen, nebulizer treatments, as well as intravenous Zosyn. 2. Small-bowel obstruction, status post exploratory laparotomy. He now appears to have an ileus. We will continue the nasogastric tube to low Gomco suction. We will continue to provide nutritional support with total parenteral nutrition. He is passing flatus and had two diarrheal stools. If he has a good day today, hopefully we could clamp the tube in the morning and try liquids again. cc: MD Zulema Del Rio MD
[2019-03-11] MEDS: SODIUM CHLORIDE 0.9% INJ SCH (10:11)
[2019-03-11] MEDS: PERIDEX MT SCH ×2 (10:11→20:42)
[2019-03-11] MEDS: PROTONIX IV SCH (10:11)
[2019-03-11] MEDS: HUMULIN R SUBQ SCH ×2 (10:19→20:41)
--- NOTE | 2019-03-11 14:48 | PROGRESS NOTE ---
DATE: 03/11/2019 SUBJECTIVE: Mr. Vasquez Rubalcava had several bowel movements early this morning and states that he feels better. He still has his NG tube in place. He has drained about a canister since I placed it 24 hours ago. His abdomen is still distended and he is having some crampy abdominal pain, but overall he says he feels better. He has been started on TPN through a central venous line, right internal jugular vein. His heart rate is 88, blood pressure 130/55, O2 saturation 98%. His T-max is 99 degrees. He has been on IV Zosyn since his surgery. He had a white blood cell count of 20 yesterday but this morning it is 10. His hematocrit is 31%. Electrolytes are within normal limits. PLAN: I am going to leave his NG tube. We are going to keep him NPO. We are going to continue TPN. He can have some ice chips for sore throat. I am going to stop his morphine. I have continued to ask him to be as mobile as he can be. We are going to change the NG tube canister. I spoke with his . I also spoke with a sister and brother who were present today. cc: Zulema Walton MD
[2019-03-11] MEDS: [UNRECOGNIZED DRUG - NUTRITION] IV SCH ×7 (19:48)
[2019-03-11] MEDS: LIPOSYN 20% 500 ML IV SCH (19:48)
[2019-03-12] MEDS: OFIRMEV 1000 MG/ISOTONIC SOLN 1,000 MG/100 ML BOTTLE IV SCH ×4 (02:44→21:41)
[2019-03-12] MEDS: ZOSYN 3.375 GM in NS 50 ML IV SCH ×4 (03:05→21:43)
[2019-03-12] MEDS: DUONEB (A & A) INH SCH ×4 (03:25→20:39)
[2019-03-12] MEDS: LOVENOX SUBQ SCH (06:40)
--- NOTE | 2019-03-12 07:38 | PROGRESS NOTE ---
DATE: 03/12/2019 Mr. Vasquez Rubalcava is now 13 days status post laparoscopic bilateral inguinal hernia repair that was complicated by a bowel obstruction needing a reoperation. He is now 6 days postop from his second surgery. He still has an NG tube in place but he had a bowel movement about 10 o'clock last night. His abdomen is mostly soft. There is no worrisome tenderness. His midline incision is without infection. He is voiding without difficulty. He has had a low-grade fever of 99.6. He is on IV Zosyn. His heart rate is 79, blood pressure 112/56, O2 saturation 97%. Yesterday, his white blood cell count was normal. His hematocrit has been about 31 to 34. He has not had elevated sugars despite being on TPN. We did not get labs this morning. PLAN: He wants to move around today. I do not mind if his NG tube is clamped as he moves around but we will leave his NG tube in place for now. He continues to receive IV Zosyn and TPN. He is not taking any pain medicine to speak except Tylenol. The morphine was stopped yesterday. cc: Zulema Walton MD
[2019-03-12] MEDS: PATIENT'S OWN MED INH SCH ×2 (08:05→20:39)
[2019-03-12] MEDS: SPIRIVA INH SCH (08:07)
[2019-03-12] MEDS: HUMULIN R SUBQ SCH ×2 (08:23→21:43)
[2019-03-12] MEDS: PROTONIX IV SCH (08:24)
[2019-03-12] MEDS: SODIUM CHLORIDE 0.9% INJ SCH (08:24)
[2019-03-12] MEDS: PERIDEX MT SCH ×2 (08:24→21:42)
[2019-03-12 12:39] LABS: AGAP 12; BUN 29 mg/dL (8-22); CALCIUM 8.2 mg/dL (8.8-10.2); CHLORIDE 98 mmol/L (98-107); CHOLESTEROL 53 mg/dL (0-200); COSMO 273; CREATININE 0.9 mg/dL (0.7-1.2); ESTIMATED GFR > 60; GLUCOSE 83 mg/dL (70-104); GOT 27 U/L (10-34); MAGNESIUM 1.8 mg/dL (1.5-2.7); PHOSPHORUS 2.5 mg/dL (2.7-4.5); POTASSIUM 4.2 mmol/L (3.5-5.1); SODIUM 134 mmol/L (136-145); TCO2 24 mmol/L (25-35); TRIGLYCERIDES 136 mg/dL (39-160)
[2019-03-12] MEDS: [UNRECOGNIZED DRUG - NUTRITION] IV SCH ×7 (17:55)
[2019-03-12] MEDS: LIPOSYN 20% 500 ML IV SCH (17:55)
[2019-03-13] MEDS: ZOSYN 3.375 GM in NS 50 ML IV SCH ×2 (03:13→08:32)
[2019-03-13] MEDS: OFIRMEV 1000 MG/ISOTONIC SOLN 1,000 MG/100 ML BOTTLE IV SCH ×4 (03:14→22:03)
[2019-03-13] MEDS: DUONEB (A & A) INH SCH ×4 (03:34→20:00)
[2019-03-13] MEDS: LOVENOX SUBQ SCH (07:04)
[2019-03-13] MEDS: SPIRIVA INH SCH (07:58)
[2019-03-13] MEDS: PATIENT'S OWN MED INH SCH ×2 (07:59→20:00)
[2019-03-13] MEDS: PERIDEX MT SCH ×2 (08:31→22:03)
[2019-03-13] MEDS: HUMULIN R SUBQ SCH ×2 (08:31→22:03)
[2019-03-13] MEDS: PROTONIX IV SCH (08:49)
--- NOTE | 2019-03-13 11:37 | Diag Imaging Result Doc PS360 ---
EXAM: CHEST-2 VIEWS HISTORY: copd TECHNIQUE: Chest two views COMPARISON: 03/10/2019 FINDINGS: No change in the nasogastric tube or right jugular line. The lungs are hyperexpanded. No cardiomegaly. There are increased interstitial markings in the lower lobes similar to the prior study. No pleural effusions. IMPRESSION: Stable chest. Electronically signed by Maulik Rader 03/13/2019 11:34 AM
[2019-03-13] MEDS: [UNRECOGNIZED DRUG - NUTRITION] IV SCH ×7 (17:11)
[2019-03-13] MEDS: LIPOSYN 20% 500 ML IV SCH (17:12)
[2019-03-13] MEDS: SODIUM CHLORIDE 0.9% INJ SCH (18:52)
[2019-03-14] MEDS: OFIRMEV 1000 MG/ISOTONIC SOLN 1,000 MG/100 ML BOTTLE IV SCH ×4 (03:18→22:11)
[2019-03-14] MEDS: DUONEB (A & A) INH SCH ×4 (04:09→20:20)
[2019-03-14] MEDS: LOVENOX SUBQ SCH (05:36)
[2019-03-14] MEDS: PATIENT'S OWN MED INH SCH ×2 (07:28→20:29)
[2019-03-14] MEDS: HUMULIN R SUBQ SCH ×2 (08:04→22:11)
[2019-03-14] MEDS: SPIRIVA INH SCH (08:05)
[2019-03-14] MEDS: PROTONIX IV SCH (09:01)
[2019-03-14] MEDS: PERIDEX MT SCH ×2 (09:01→22:11)
[2019-03-14] MEDS: SODIUM CHLORIDE 0.9% INJ SCH (09:02)
--- NOTE | 2019-03-14 09:31 | Diag Imaging Result Doc PS360 ---
FLAT/UPRIGHT ABD/1 VIEW CHEST - 03/14/2019 INDICATION: small bowel obstruction TECHNIQUE: COMPARISON: 03/13/2019, 03/10/2019 FINDINGS: Stable nasogastric tube and right central line in good position. Stable COPD. Stable advanced pulmonary fibrosis in the lung bases. No new infiltrates. Heart size is normal. Stable laparotomy incision skin pablito. No bowel obstruction or significant free air. IMPRESSION: No complication or change from prior exams. Electronically signed by Rolly Morton 03/14/2019 9:29 AM
--- NOTE | 2019-03-14 14:28 | PROGRESS NOTE ---
DATE: 03/12/2019 SUBJECTIVE: Mr. Rubalcava is hospital day number 5 following an exploratory laparotomy for a small bowel obstruction. He required replacement of the NG tube over the weekend due to intractable nausea and vomiting. He denies any further nausea or vomiting. He is passing bowel movements. He reports that the consistency of the bowel movements is a watery chocolate pudding. He denies any nausea or vomiting. He is breathing comfortably. He denies any shortness of breath, cough or pleuritic chest pain. OBJECTIVE: Vital Signs: He is afebrile. Vital signs are stable. CV: Regular rate and rhythm. Lungs: Clear. Abdomen: Soft but mildly distended. Hypoactive bowel sounds. Extremities: Without edema. ASSESSMENT/PLAN: 1. Small bowel obstruction. Clinically he continues to improve. If he has a good night, we will clamp the nasogastric tube in the morning and begin clear liquids. We will not remove the nasogastric tube until he is eating consistently. 2. Aspiration pneumonia. We will continue IV Zosyn and DuoNeb nebulizer treatments. Will check a PA and lateral chest x-ray in the morning. cc: MD Zulema Del Rio MD
[2019-03-14] MEDS: [UNRECOGNIZED DRUG - NUTRITION] IV SCH ×7 (16:29)
[2019-03-14] MEDS: LIPOSYN 20% 500 ML IV SCH (16:34)
[2019-03-15] MEDS: DUONEB (A & A) INH SCH ×4 (03:50→21:30)
[2019-03-15] MEDS: OFIRMEV 1000 MG/ISOTONIC SOLN 1,000 MG/100 ML BOTTLE IV SCH ×4 (04:06→21:34)
[2019-03-15] MEDS: LOVENOX SUBQ SCH (06:32)
[2019-03-15] MEDS: PATIENT'S OWN MED INH SCH ×2 (08:18→21:34)
[2019-03-15] MEDS: SPIRIVA INH SCH (08:18)
[2019-03-15] MEDS: HUMULIN R SUBQ SCH ×2 (08:40→21:28)
[2019-03-15] MEDS: SODIUM CHLORIDE 0.9% INJ SCH (08:40)
[2019-03-15] MEDS: PERIDEX MT SCH ×2 (08:40→21:33)
[2019-03-15] MEDS: PROTONIX IV SCH (08:48)
--- NOTE | 2019-03-15 10:13 | PROGRESS NOTE ---
DATE: 03/15/2019 SUBJECTIVE: Mr. Rubalcava was admitted to [facility] with a small bowel obstruction. His NG tube was pulled yesterday. He has had no nausea or vomiting overnight. He has had 2 semi- formed stools which he describes as the consistency of chocolate pudding yesterday. He is passing flatus. He does have a history of COPD. He is breathing comfortably. OBJECTIVE: Vital signs: His O2 saturations are ranging from 98 to 99 percent on room air. Temperature 98.2 degrees, pulse 91, respirations 16, BP 116/64. CV: Regular rate and rhythm. Lungs: Distant breath sounds with increased period of expiration. Abdomen: Soft, nontender, with active bowel sounds. No hepatosplenomegaly. No abdominal bruits. ASSESSMENT AND PLAN: 1. Small bowel obstruction, resolved. We will begin full liquid diet today and advance his diet as tolerated. 2. Chronic obstructive pulmonary disease. He is breathing comfortably. We will continue Tiotropium bromide 1 inhalation daily and nebulizer treatments. cc: MD Zulema Del Rio MD
--- NOTE | 2019-03-15 14:59 | PROGRESS NOTE ---
DATE: 03/13/2019 SUBJECTIVE: Mr. Rubalcava continues to improve clinically. He is passing flatus. He had a large bowel movement yesterday. He has not had a bowel movement today. He denies any further nausea, vomiting, or abdominal pain. He is breathing comfortably. He denies any shortness of breath, pleuritic chest pain, or persistent cough. OBJECTIVE: Vital signs: He is afebrile, pulse 89, respirations 17, BP 117/67. Cardiovascular: Regular rate and rhythm. Abdomen: Soft with bowel sounds. No rebound or guarding. ASSESSMENT AND PLAN: 1. Small bowel obstruction status post exploratory laparotomy. He still is recovering from what appears to be an ileus. He is passing flatus. He is having a bowel movement. I suspect we could clamp the NG tube and begin clear liquids. If he is able to tolerate clear liquids, then we can stop the NG tube. 2. Aspiration pneumonia. Sepsis has been ruled out. We will recheck a PA and lateral chest x- ray. If his chest x-ray has cleared, we will stop IV antibiotics. cc: MD Zulema Del Rio MD
[2019-03-15] MEDS: LIPOSYN 20% 500 ML IV SCH (16:54)
[2019-03-15] MEDS: [UNRECOGNIZED DRUG - NUTRITION] IV SCH ×7 (17:22)
--- NOTE | 2019-03-15 18:47 | PROGRESS NOTE ---
DATE: 03/15/2019 SUBJECTIVE: Mr. Vasquez Rubalcava had his NG tube removed yesterday. A flat and upright abdominal film suggested a normal gas pattern yesterday. He has had several bowel movements. He states that he has had some flatus. We took his NG tube out and left him n.p.o. after midnight. This morning, he has begun full liquids and he is up walking was physical therapy. OBJECTIVE: Clinically, he looks stronger and like he feels better. His abdomen is slightly distended, but not tightly. He does not complain of any nausea or vomiting. His heart rate is 83, blood pressure 103/55, O2 saturation 99%. His midline incision is intact. He has no evidence of hernia. PLAN: We will stop his TPN and advance his diet as his clinical situation allows us. cc: Zulema Walton MD
[2019-03-16] MEDS: OFIRMEV 1000 MG/ISOTONIC SOLN 1,000 MG/100 ML BOTTLE IV SCH (03:43)
[2019-03-16] MEDS: DUONEB (A & A) INH SCH ×5 (05:55→21:30)
[2019-03-16] MEDS: PROTONIX PO SCH (06:02)
[2019-03-16] MEDS: LOVENOX SUBQ SCH (06:02)
[2019-03-16] MEDS: SPIRIVA INH SCH (08:00)
[2019-03-16] MEDS: PATIENT'S OWN MED INH SCH ×2 (08:01→21:00)
[2019-03-16] MEDS ORDERED: TYLENOL PO PRN (08:57)
[2019-03-16] MEDS: HUMULIN R SUBQ SCH ×2 (09:02→23:22)
[2019-03-16] MEDS: PERIDEX MT SCH ×2 (09:03→21:30)
--- NOTE | 2019-03-16 09:45 | PROGRESS NOTE ---
DATE: 03/16/2019 SUBJECTIVE: Mr. Rubalcava has a history of COPD. He is breathing comfortably. He denies any shortness of breath or persistent cough. Oxygen levels are ranging from 96% to 97% on room air. He is currently on Spiriva and Serevent. He is tolerating a full liquid diet without nausea or vomiting. He is having a daily bowel movement and continues to pass flatus. OBJECTIVE: Vital signs: Temperature 98.1 degrees pulse 86, respirations 16, BP 122/65. CV: Regular rate and rhythm. Lungs: Clear. Abdomen: Soft, nontender with active bowel sounds. No hepatosplenomegaly. No abdominal bruits. ASSESSMENT AND PLAN: 1. Small bowel obstruction status post exploratory laparotomy. Clinically, he continues to progress. He is tolerating a full liquid diet. We will continue to increase activity. Physical therapy has been consulted to see the patient. We will advance his diet as tolerated. We will stop the TPN. 2. Chronic obstructive pulmonary disease. He is breathing comfortably. We will continue the Spiriva and Serevent as well as nebulizer treatments. cc: MD Zulema Del Rio MD
--- NOTE | 2019-03-16 10:59 | PROGRESS NOTE ---
DATE: 03/16/2019 Mr. Rubalcava is status post exploratory laparotomy for small bowel obstruction. Over the last several days he has had regular bowel activity and has tolerated liquids. He still has a little bit of distention in his abdomen but is not tightly distended. He has had no vomiting or significant nausea. We will advance his diet to a regular diet and we will plan to stop his TPN and lipids when the current bags have been completed. We have changed all medicines to p.o. and his antibiotics have been discontinued. His heart rate is 91 blood pressure 122/65, O2 saturation 97%. His midline incision is well healed. I removed the skin clips. He is good about ambulating in the adame and his room. cc: Zulema Walton MD
[2019-03-17] MEDS: LOVENOX SUBQ SCH (06:21)
[2019-03-17] MEDS: PROTONIX PO SCH (06:21)
[2019-03-17 08:04] VITALS: BP 105/63
[2019-03-17] MEDS: PATIENT'S OWN MED INH SCH (08:09)
[2019-03-17] MEDS: DUONEB (A & A) INH SCH (08:09)
[2019-03-17] MEDS: SPIRIVA INH SCH (08:09)
[2019-03-17] MEDS: PERIDEX MT SCH (08:22)
[2019-03-17] MEDS: HUMULIN R SUBQ SCH (08:23)
--- NOTE | 2019-03-17 18:42 | GENERAL SURGERY PROGRESS NOTE ---
DATE: 03/17/2019 SUBJECTIVE: Doing well. He had a bowel movement. He is tolerating diet. No pain. OBJECTIVE: Slight separation of his inferior wound, though it was reapproximated with Steri- Strips by the nurse. No fevers. No tachycardia. Generally he is alert. Abdomen is soft, nontender. LABORATORY DATA: Glucose 118. ASSESSMENT AND PLAN: A 73-year-old gentleman with bowel obstruction, status post bilateral inguinal hernia repair, status post exploratory laparotomy. He is doing well. He wants to go home. We will remove his central line. I have encouraged him to remain on a gastrointestinal soft low-residual diet, with stool softeners as needed, and advancing activity level as tolerated. They will keep the Steri-Strips in place and see Dr. Walton this week in the office. cc: MD Zulema Roberto MD
[2019-03-17] MEDS ORDERED: SEREVENT DISKUS INH SCH (19:30)
--- NOTE | 2019-03-17 20:25 | DISCHARGE SUMMARY ---
ADMISSION DATE: 03/06/2019 DISCHARGE DATE: 03/17/2019 DISCHARGE DIAGNOSES: 1. Small bowel obstruction status post exploratory laparotomy with repair of internal abdominal hernia. 2. Intractable nausea and vomiting. 3. Volume depletion secondary to intractable nausea and vomiting. 4. Acute renal failure secondary to volume depletion. 5. Aspiration pneumonia. 6. Chronic obstructive pulmonary disease. 7. Rheumatoid arthritis. 8. Postoperative ileus. DISCHARGE INSTRUCTIONS: 1. Return to clinic in [address] Derrick Walton for postoperative followup. 2. Return to clinic in 2 weeks to see me, Dr. Jonel Braden. 3. GI soft diet. 4. Activity. I have asked him to avoid bending, heavy lifting or strenuous activities as well as driving for at least 1 week. 5. Medications. Pantoprazole 40 mg daily, Serevent discus 1 puff b.i.d., sulfasalazine 500 mg 3 tablets b.i.d., Spiriva 1 inhalation daily, Elfrida 7.5 one q.6 hours p.r.n. pain, Phenergan 25 mg 1/2 to 1 tablet q.6 hours p.r.n. nausea, vomiting. DISCHARGE PHYSICAL EXAMINATION: This is a well-developed, well-nourished, 73-year-old gentleman in no apparent distress. He is afebrile. Pulse 91, respiratory rate 14, BP 110/63. CV: Regular rate and rhythm. Lungs: Distant breath sounds with increased period of expiration. Abdomen: Soft. Good bowel sounds. No rebound or guarding. He has a well-healing midline scar. There is a small area of dehiscence on the lower scar. The wound margins are clear. There is no purulent or serosanguineous drainage. No evidence of infection. Mr. Rubalcava presented to [facility] with intractable nausea and vomiting. Because of the intractable nausea and vomiting, he had poor oral intake. On admission to [facility] his BUN and creatinine were noted to be 54 and 2.0. The patient was aggressively rehydrated with normal saline. His renal function normalized with fluid resuscitation. At the time of discharge his BUN was 24 with a creatinine of 1.0. He does have a history of underlying COPD for which he takes both Spiriva and Serevent Discus. He was with complaint of mild shortness of breath, pleuritic chest pain and a productive cough. Chest x-ray demonstrates severe pulmonary fibrosis with a right lower lobe infiltrate. The patient was felt to have an aspiration pneumonia. We continued Spiriva, Serevent and added DuoNeb nebulizer treatments as well as IV Zosyn. With aggressive pulmonary toilet and IV antibiotics his aspiration pneumonia resolved and he was transitioned off IV antibiotics. At the time of discharge he was breathing comfortably on room air and was maintaining O2 saturations of 95% to 98% on a combination of Spiriva and Serevent. Mr. Rubalcava has undergone bilateral inguinal hernia repair surgery on 03/01/2019 as an outpatient. He presented with persistent nausea, vomiting and abdominal distention. His initial flat and upright film demonstrates some large gas distended small bowel loops. There also appeared to be a fecal impaction. A CT scan of the abdomen and pelvis demonstrated a small bowel obstruction due to a right abdominal hernia. Dr. Walton performed an exploratory laparotomy with repair of internal abdominal hernia. The patient had an NG tube postoperatively. We continued fluids. We treated his nausea and vomiting on a p.r.n. basis with Phenergan. We used morphine for pain. On 03/10/2019 he was beginning to pass flatus. We stopped the NG tube and initiated clear liquids. He had worsening nausea, vomiting and abdominal pain. A followup CT scan demonstrated a postoperative ileus. Dr. Walton replaced the nasogastric tube and performed an ultrasound-guided right internal jugular central venous line placement. TPN was initiated for nutritional support. Over the course of the next several days he was continued on an NG tube to low Gomco suction. He began passing flatus. He began passing small diarrheal stools. He then began passing semiformed stools. We clamped his tube. We began full liquid diet. He tolerated full liquids without nausea, vomiting, or abdominal pain. The NG tube was discontinued. He was transitioned to a GI soft diet which he was tolerating without nausea, vomiting, or diarrhea. The TPN was discontinued. He was having daily formed bowel movements. He had no nausea or vomiting. He was tolerating a GI soft diet. We felt that he had recovered and was stable for discharge. Having reached maximum hospital benefit, the patient was discharged in stable condition. cc: MD Zulema Del Rio MD
== END 2019-03-17 11:17 | disposition home or self-care (01) | DRG 356 ==
LOC: ED 09:56 → 4N 13:52
PROVIDERS: ADMIT Surgery; ATTEND Surgery
CPT/HCPCS: 51702; 71010; 71020; 71045; 71046; 74019; 74020; 74022; 74176; 74177; 80048; 80053; 81001; 82465; 82550; 82948; 83605; 83735; 84100; 84134; 84450; 84478; 84484; 85025; 85027; 85610; 85730; 87040; 94640; 94761; 94799; 96360; 96361; 97162; 97530; 99285; A9270; C9113; J0131; J0330; J0690; J1100; J1650; J2270; J2405; J2543; J3010; J3480; J7030; Q9967; S0164; XXXXX